=== PATIENT | female | born 1940 | race Caucasian/White ===

== ENCOUNTER 2016-06-13 11:40 | Emergency (ER) | payer OTHER ==
[~2016-06-13] VITALS: Wt 72.1 kg
[~2016-06-13 11:40] MED LIST: ACET-141 PO; ACET500C5 PO; ACET500T98 PO; ALBU18HF INHALATION; ASPI81TA3 PO; ATEN-122 PO; AZIT250T6 PO; CEPH-443 PO; IBUP-1542 PO; IBUP200C PO; IBUP400T22 PO; LOSA25TA2 PO; NIT4 SL; PRAV20TA63 PO
[2016-06-13] MEDS ORDERED: ONDANSETRON 4 MG INJ IV STA (15:45)
[2016-06-13] MEDS ORDERED: SOD CHLORIDE 0.9% 1,000 ML IV STA (15:45)
[2016-06-13 16:19] LABS: ADD SCAN DIFF NO
[2016-06-13 16:21] LABS: ADD UMIC YES; BASOPHILS % 0.7 % (0.0-2.0); EOSINOPHILS # 0.1 10^3/ul (0.0-0.5); EOSINOPHILS % 2.2 % (0.0-7.0); HEMATOCRIT 39.3 % (37.0-47.0); HEMOGLOBIN 13.5 g/dl (12.0-16.0); LYMPHOCYTES # 1.4 10^3/ul (0.8-2.9); LYMPHOCYTES % 24.3 % (15.0-51.0); MEAN CORPUSCULAR HEMOGLOBIN 31.4 pg (29.0-33.0); MEAN CORPUSCULAR HGB CONC 34.4 g/dl (32.0-37.0); MEAN CORPUSCULAR VOLUME 91.4 fl (82.0-101.0); MEAN PLATELET VOLUME 8.9 fl (7.4-10.4); MONOCYTE # 0.3 10^3/ul (0.3-0.9); MONOCYTES % 5.3 % (0.0-11.0); NEUTROPHILS % 67.3 % (39.0-77.0); PLATELET COUNT 233 10^3/UL (140-415); RED CELL DISTRIBUTION WIDTH 12.8 % (11.5-14.5); URINE BILIRUBIN (Dip) NEGATIVE (NEGATIVE); URINE BLOOD (Dip) 2+ (NEGATIVE); URINE COLOR LT. YELLOW (YELLOW); URINE GLUCOSE (Dip) NEGATIVE (NEGATIVE); URINE KETONES (Dip) NEGATIVE (NEGATIVE); URINE LEUKOCYTE ESTERASE (Dip) 3+ (NEGATIVE); URINE NITRITE (Dip) NEGATIVE (NEGATIVE); URINE TOTAL PROTEIN (Dip) NEGATIVE (NEGATIVE); URINE UROBILINOGEN (Dip) 0.2 E.U./dL (0.1-1.0); WHITE BLOOD COUNT 5.9 10^3/ul (4.8-10.8)
[2016-06-13] MEDS ORDERED: DICLOFENAC SODIUM 37.5 MG/ML VIAL IV STA (16:29)
[2016-06-13 16:37] LABS: ALBUMIN 4.1 g/dl (3.3-4.9); BACTERIA,URINE MANY; SQUAMOUS EPITHELIAL CELL,UR MODERATE
[2016-06-13 16:38] LABS: POTASSIUM 3.7 mmol/L (3.5-5.1)
[2016-06-13 16:40] LABS: ALBUMIN/GLOBULIN RATIO 1.32; BILIRUBIN,INDIRECT 1.3 mg/dl (0-1.1); BILIRUBIN,TOTAL 1.3 mg/dl (0.2-1.3); CREATININE 0.59 mg/dl (0.44-1.00); TOTAL PROTEIN 7.2 g/dl (6.1-8.1)
[2016-06-13 16:41] LABS: CALCIUM 9.3 mg/dl (8.4-10.2)
[2016-06-13] MEDS ORDERED: ASPI-664 PO (17:17)
[2016-06-13] MEDS ORDERED: PRAV20TA63 PO (17:18)
[2016-06-13] MEDS ORDERED: ATEN-51 PO (17:19)
[2016-06-13] MEDS ORDERED: CEFTRIAXONE 1 GM/50 ML (PMX) 50 ML IVPB ONE (17:30)
[2016-06-13] MEDS ORDERED: CIPR500T4 PO (17:43)
[2016-06-13] MEDS ORDERED: NITR-58 PO (17:43)
[2016-06-13] MEDS ORDERED: NAPR-688 PO (17:46)
[2016-06-13] MEDS ORDERED: PHEN-537 PO (17:46)
[2016-06-13] MEDS ORDERED: ONDA4TAB14 PO (17:46)
[2016-06-13 18:43] VITALS: BP 190/72; PULSE 80; RESP 20; TEMP 98.6
--- NOTE | 2016-06-22 00:43 | ERD ---
DATE OF SERVICE: 06/13/2016 HISTORY OF PRESENT ILLNESS: This 76-year-old female comes to the emergency room for experiencing bi lateral flank pain radiating to the left anterior abdomen with nausea. She is also having burning o n urination. She has not vomited. She has no diarrhea currently. She has had no fevers or chills. REVIEW OF SYSTEMS: A 12-point review of systems negative except as in the HPI. PAST MEDICAL HISTORY: Hypertension, hypercholesterolemia. PAST SURGICAL HISTORY: Denies. FAMILY HISTORY: Noncontributory. SOCIAL HISTORY: No tobacco, alcohol, or other drugs. PHYSICAL EXAMINATION VITAL SIGNS: Temperature 98, pulse 64, blood pressure 176/79, respirations 20, oxygen saturation 98 % on room air. GENERAL: In no acute distress. HEENT: Normocephalic, atraumatic. NECK: Supple, no JVD, no meningismus. HEART: Regular rate and rhythm. No murmurs. LUNGS: Clear to auscultation bilaterally. ABDOMEN: Soft. No palpable tenderness, nondistended. Bowel sounds are within normal limits. BACK: Mild paraspinal muscle spasm on the left side of back with mild tenderness. No CVA tendernes s, no deformities, no midline tenderness. NEUROLOGIC: Alert and oriented x3, no focal deficits. SKIN: No rashes or other lesions. EXTREMITIES: No cyanosis, clubbing, or edema. DIAGNOSTIC DATA: CBC is completely within normal limits. Basic metabolic panel within normal limit s. Liver function tests show a very mildly-elevated bilirubin of 1.3, otherwise normal. Urinalysis is positive for urinary tract infection with 25-50 white blood cells per high powered field and 5-1 0 red cells. Leukocyte esterase is positive. EMERGENCY DEPARTMENT COURSE AND MEDICAL DECISION MAKING: The patient is suffering from mild pyelone phritis. She was given IV fluids, as well as Zofran, which resolved her nausea. She was also given Dyloject, which made her almost pain free in the emergency room. She has been given a gram of Roce phin IV in order to accelerate treatment of the urinary tract infection. The patient's vital signs remained stable. She did have some hypertension, but the blood pressure was not high enough to acut jasiel lower the emergency room. The patient is going to take her blood pressure medication when she g oes home. Shared decision making was used, and the patient was offered admission to the hospital, b ut she and her family declined this, and would prefer to go home with p.o. antibiotics. I am going to discharge her with Macrobid and Cipro, as well as Zofran, she might need for any nausea. She is instructed today to return to the emergency room for any pain that she is experiencing or cannot man age at home, as well as for any concerning change such as fevers, vomiting. Otherwise, she is going to follow up with doctor in the next 2-3 days. DISCHARGE DIAGNOSIS: Pyelonephritis. DISPOSITION: Home in stable condition. Dictated By: NASREEN CELIS/BERNADETTE Conf#: [id number] DID#: [id number]
== END 2016-06-13 18:48 | disposition home or self-care (01) ==
LOC: E/R 11:40
DX: N12 Tubulo-interstitial nephritis, not specified as acute or chronic (principal); E11.9 Type 2 diabetes mellitus without complications; I10 Essential (primary) hypertension
CPT/HCPCS: 36415; 80053; 81001; 83690; 85025; 87086; 96374; 96375; J0696; J2405; J7030; Z7502; Z7610; 81003

== ENCOUNTER 2016-07-29 13:18 | Emergency (ER) | payer MEDICAID, OTHER ==
[~2016-07-29] VITALS: Ht 157.5 cm; Wt 69.0 kg
[~2016-07-29 13:18] MED LIST changes: -ACET-141 PO; -ACET500C5 PO; -ACET500T98 PO; -ALBU18HF INHALATION; +ASPI-664 PO; -ASPI81TA3 PO; -ATEN-122 PO; +ATEN-51 PO; -AZIT250T6 PO; -CEPH-443 PO; +CIPR500T4 PO; -IBUP-1542 PO; -IBUP200C PO; -IBUP400T22 PO; -LOSA25TA2 PO; +NAPR-688 PO; -NIT4 SL; +NITR-58 PO; +ONDA4TAB14 PO; +PHEN-537 PO
[2016-07-29 13:32] VITALS: Ht 157.5 cm; Wt 69.0 kg
[2016-07-29] MEDS ORDERED: ACETAMINOPHEN 325 MG TAB PO ONE (14:30)
--- NOTE | 2016-07-29 14:43 | RADRPT ---
PROCEDURE: CT Brain without contrast. CLINICAL INDICATION: Trauma; Neurologic deficit TECHNIQUE: A CT of the brain was performed on multidetector high-resolution CT scanner utilizing a xial sections from the skull base through the vertex without contrast. One or more of the following dose reduction techniques were used: Automated exposure control, Adjustment of the mA and/or kV acc ording to patient size, and/or use of iterative reconstruction technique. DOSE: CTDI = 44 mGy and the DLP = 630 mGy-cm. COMPARISON: Head CT 07/29/2008 FINDINGS: No acute intracranial hemorrhage, significant mass effect or midline shift. Patchy hypoattenuation o f the cerebral white matter is compatible with moderate chronic microvascular ischemic changes. Tiny punctate calcification in the right frontal lobe is unchanged from prior. Vascular calcifications. Prominence of the cortical sulci and ventricles are related to mild cerebral volume loss. No signi ficant opacification of the visualized paranasal sinuses or mastoids. IMPRESSION: No acute intracranial findings. Moderate chronic microvascular disease and intracranial atherosclerosis. RPTAT: AA .Goyo Jiménez MD, MD Date Time Electronically viewed and signed by .Goyo Jiménez MD, MD on 07/29/2016 14:43 .T/
--- NOTE | 2016-07-29 14:47 | RADRPT ---
PROCEDURE: CT Cervical Spine without contrast. CLINICAL INDICATION: Trauma, neck pain. TECHNIQUE: A CT of the cervical spine was performed on a multidetector CT scanner utilizing high-r esolution axial imaging from the skull base through the cervical thoracic junction. Sagittal and co shelli reconstructions were performed. CTDI: 22 mGy. DLP: 513 mGycm. One or more of the following dose reduction techniques were used: Automated exposure control, Adjustment of the mA and/or kV acc ording to patient size, and/or use of iterative reconstruction technique. COMPARISON: None available. FINDINGS: Osteopenia. Mild reversal of the cervical lordosis. Corticated osseous structure inferior to the an terior arch of C1 measuring 6 mm may be due to prior, remote injury. No acute cervical vertebral fr acture or subluxation. Multilevel degenerative changes. Grade 1 anterolisthesis C3-4 and C4-5 are d ue to facet arthropathy. Disk osteophytes result in mild spinal canal narrowing at C3-4. Foraminal narrowings are mild bilateral C2-3, moderate to severe right and moderate left C3-4, mild to modera te right and mild left C4-5, mild bilateral C5-6. Aortic and carotid vascular calcifications are se en. IMPRESSION: No acute cervical vertebral fracture or subluxation. Multilevel degenerative changes. RPTAT: AA .Goyo Jiménez MD, MD Date Time Electronically viewed and signed by .Goyo Jiménez MD, MD on 07/29/2016 14:47 .T/
[2016-07-29] MEDS ORDERED: TRAM50TA2 PO (15:46)
[2016-07-29] MEDS ORDERED: ACET500C5 PO (15:46)
--- NOTE | 2016-07-29 15:51 | ERD ---
ER Documentation Chief Complaint Date/Time DATE: 07/29/16 TIME: 15:50 Chief Complaint Pt with CHIANG and neck pain after GLF, no ko. HPI This 76-year-old female complains of right-sided headache and neck pain after a ground-level fall history appears to be a mechanical fall 1 week ago without evidence of chest pain, shortness breath, syncope, vomiting, visual changes or weakness or bowel bladder incontinence. Her pain is primarily on the left side of her neck on the right side of her head. She denies bleeding or lacerations. ROS All systems reviewed and are negative except as per history of present illness. Medications Home Meds Active Scripts Acetaminophen* (Tylophen*) 500 Mg Capsule, 1 CAP PO Q6H Y for PAIN AND OR ELEVATED TEMP, #20 CAP Prov:AMBRCOIO BREAUX MD 07/29/16 Tramadol HCl (Tramadol HCl) 50 Mg Tablet, 50 MG PO Q4 Y for PAIN, #15 TAB Prov:AMBROCIO BREAUX MD 07/29/16 Ondansetron (Ondansetron Odt) 4 Mg Tab.rapdis, 4 MG PO Q6H Y for NAUSEA AND/OR VOMITING, #10 TAB Prov:NASREEN PURDY DO 06/13/16 Phenazopyridine Hcl* (Pyridium*) 100 Mg Tab, 100 MG PO TID, #6 TAB Prov:NASREEN PURDY DO 06/13/16 Naproxen* (Naproxen*) 500 Mg Tablet, 375 MG PO BID Y for PAIN, #20 TAB Prov:NASREEN PURDY DO 06/13/16 Nitrofurantoin Monohyd Macrocr* (Macrobid*) 100 Mg Capsr, 100 MG PO BID for 14 Days, CAP Prov:NASREEN PURDY DO 06/13/16 Ciprofloxacin Hcl* (Ciprofloxacin Hcl*) 500 Mg Tablet, 500 MG PO BID for 10 Days , TAB Prov:NASREEN PURDY DO 06/13/16 Reported Medications Atenolol* (Atenolol*) 25 Mg Tablet, 25 MG PO DAILY, #30 TAB 06/13/16 Pravastatin Sodium* (Pravastatin Sodium*) 20 Mg Tablet, 20 MG PO HS, TAB 06/13/16 Aspirin* (Aspirin* EC) 81 Mg Tablet.dr, 81 MG PO DAILY, TAB 06/13/16 Allergies Allergies: Coded Allergies: morphine (Verified Allergy, Mild, 06/13/16) PMhx/Soc History of Surgery: Yes (CHOLECYSECTOMY, RIGHT BREAT TUMOR REMOVAL, VAGINAL CYST REMOVAL) Anesthesia Reaction: No Hx Neurological Disorder: No Hx Respiratory Disorders: No Hx Cardiac Disorders: Yes (HTN, HIGH CHOLESTEROL) Hx Psychiatric Problems: No Hx Miscellaneous Medical Probl: Yes (DIABETES) Hx Alcohol Use: No Hx Substance Use: No Hx Tobacco Use: No Physical Exam Vitals Vital Signs Date Time Temp Pulse Resp B/P Pulse Ox O2 Delivery O2 Flow Rate FiO2 07/29/16 13:32 98.5 84 16 183/81 97 Physical Exam Const: [] Alert, [id number]. Head: Atraumatic. Minimal tenderness in the right parietal area without step- offs, deformities, swelling. Eyes: Normal Conjunctiva ENT: Normal External Ears, Nose and Mouth. No hemotympanum or yi sign. Tenderness in the left neck paraspinous muscles without appreciable midline tenderness or deformities. Neck: Full range of motion..~ No meningismus. Resp: Clear to auscultation bilaterally Cardio: Regular rate and rhythm, no murmurs Abd: Soft, non tender, non distended. Normal bowel sounds Skin: No petechiae or rashes Back: No midline or flank tenderness Ext: No cyanosis, or edema Neur: Awake and alert Psych: Normal Mood and Affect Results 24 hrs Current Medications Medications (Trade) Dose Ordered Sig/Cyrus Route PRN Reason Start Time Stop Time Status Last Admin Dose Admin Acetaminophen (Tylenol Tab) 650 mg ONCE ONCE PO 07/29/16 14:30 07/29/16 14:31 DC Procedures/MDM Given duration of symptoms status post trauma CT brain and C-spine was performed which shows no acute findings. Patient appears to have cervical strain and head injury without evidence of bleeding, fracture, mass-effect, neurologic deficit. She will be treated with tramadol and Tylenol further observation at home. The patient was stable with no new complaints during the ER course. Clinically, there is no current evidence to suggest meningitis, sepsis, acute abdomen, pneumonia, acute coronary syndrome, pulmonary embolism, or any other emergent condition appearing to require further evaluation or hospitalization. The patient should certainly return for any new or worsening symptoms per the aftercare instructions. They should otherwise follow-up with her primary care doctor for reevaluation this week. Departure Diagnosis: Primary Impression: Head injury Encounter type: initial encounter Qualified Code: S09.90XA - Head injury, initial encounter Additional Impression: Injury of neck Encounter type: initial encounter Qualified Code: S19.9XXA - Injury of neck , initial encounter Condition: Stable Patient Instructions: HEAD INJURY, No Wake-Up (Adult), Neck Sprain/Strain Additional Instructions: Examines normal hoy. Cheque otro vez con escamilla doctor primario en el proximo mandujano or regresa para mas o nueva simptomas. AMBROCIO BREAUX MD July 29, 2016 15:51
== END 2016-07-29 16:06 | disposition home or self-care (01) ==
LOC: FTE 13:18
DX: S09.90XA Unspecified injury of head, initial encounter (principal); S19.9XXA Unspecified injury of neck, initial encounter; I10 Essential (primary) hypertension; E11.9 Type 2 diabetes mellitus without complications; R51 Headache; W18.39XA Other fall on same level, initial encounter; Y92.9 Unspecified place or not applicable; Z79.82 Long term (current) use of aspirin
CPT/HCPCS: 70450; 72125; Z7502

== ENCOUNTER 2016-07-31 12:14 | Emergency (ER) | payer MEDICAID ==
[~2016-07-31] VITALS: Wt 68.0 kg
[~2016-07-31 12:14] MED LIST changes: +ACET500C5 PO; +TRAM50TA2 PO
[2016-07-31] MEDS ORDERED: ONDANSETRON 4 MG INJ IV STA (16:20)
[2016-07-31] MEDS ORDERED: FAMOTIDINE 20 MG INJ IV STA (16:20)
[2016-07-31] MEDS ORDERED: NICARDipine HCL 30 MG CAPSULE PO ONE (16:30)
[2016-07-31 16:51] LABS: ADD SCAN DIFF NO
[2016-07-31 16:53] LABS: BASOPHIL # 0.1 10^3/ul (0.0-0.1); BASOPHILS % 0.5 % (0.0-2.0); HEMATOCRIT 39.1 % (37.0-47.0); LYMPHOCYTES # 0.8 10^3/ul (0.8-2.9); LYMPHOCYTES % 7.9 % (15.0-51.0); MEAN CORPUSCULAR HEMOGLOBIN 30.7 pg (29.0-33.0); MEAN CORPUSCULAR HGB CONC 33.2 g/dl (32.0-37.0); MEAN CORPUSCULAR VOLUME 92.2 fl (82.0-101.0); MONOCYTE # 0.2 10^3/ul (0.3-0.9); MONOCYTES % 1.6 % (0.0-11.0); NEUTROPHIL # 9.4 10^3/ul (1.6-7.5); NEUTROPHILS % 89.5 % (39.0-77.0); PLATELET COUNT 228 10^3/UL (140-415); RED BLOOD COUNT 4.24 10^6/ul (4.20-5.40); RED CELL DISTRIBUTION WIDTH 12.8 % (11.5-14.5); WHITE BLOOD COUNT 10.5 10^3/ul (4.8-10.8)
[2016-07-31 17:08] LABS: ALBUMIN 4.3 g/dl (3.3-4.9); CHLORIDE 102 mmol/L (97-110)
[2016-07-31 17:09] LABS: POTASSIUM 3.5 mmol/L (3.5-5.1); SODIUM 139 mmol/L (135-144)
[2016-07-31 17:10] LABS: CREATININE 0.55 mg/dl (0.44-1.00)
[2016-07-31 17:11] LABS: ALANINE AMINOTRANSFERASE 31 IU/L (13-69); ALKALINE PHOSPHATASE 126 IU/L (42-121); ANION GAP 15 (8-16); ASPARTATE AMINO TRANSFERASE 21 IU/L (15-46); BLOOD UREA NITROGEN 15 mg/dl (7-20); CARBON DIOXIDE 26 mmol/L (21-31); GLUCOSE 131 mg/dl (70-220); TOTAL PROTEIN 7.6 g/dl (6.1-8.1)
[2016-07-31 17:12] LABS: CALCIUM 9.2 mg/dl (8.4-10.2)
[2016-07-31 17:24] LABS: TROPONIN-I < 0.012 ng/ml (0.00-0.12)
[2016-07-31] MEDS ORDERED: IOHEXOL 300MG/ML 150 ML BTL ONE (17:29)
[2016-07-31] MEDS ORDERED: SOD CHLORIDE 0.9% 100 ML ONE (17:29)
--- NOTE | 2016-07-31 18:34 | RADRPT ---
PROCEDURE: CT Abdomen and Pelvis with contrast. CLINICAL INDICATION: Abdominal pain, nausea, vomiting TECHNIQUE: CT of the abdomen and pelvis was performed on a multi-detector scanner following the un complicated IV administration of 90 cc of Omnipaque 300. Coronal and sagittal images were reformatt ed from the axial data set. One or more of the following dose reduction techniques were used: autom ated exposure control, adjustment of the mA and/or kV according to patient size, use of iterative r econstruction technique. CTDI = 12.23 mGy. DLP = a 662.72 mGy-cm. COMPARISON: None. FINDINGS: CT abdomen: The lung bases are clear. The heart size is normal, without pericardial effusion. Gallbladder is s urgically absent. There is mild dilatation of the intra and extrahepatic biliary ducts - common anjelica e duct maximal diameter is 11 mm. Liver demonstrates scattered benign cysts, stable over time. Whalen creas, spleen, adrenal glands and kidneys are unremarkable except for benign renal cysts. No urolit hiasis or obstructive uropathy is identified. The stomach is grossly unremarkable. There is no abdominal aortic aneurysm or dissection. Aortic vascular calcifications are present. T here is no retroperitoneal lymphadenopathy. The bonnie hepatis region is clear. CT pelvis: No bowel obstruction, free intraperitoneal air or abscess is identified. Colonic diverticulosis is noted without diverticulitis. The appendix is well visualized and normal. There is no colitis. Ur inary bladder, uterus and right adnexa are unremarkable. Left ovary demonstrates a 2 cm cyst. No s olid pelvic mass, free fluid or lymphadenopathy is identified. The surrounding osseous structures are remarkable for degenerative spondylosis of the spine. No ost eolytic or osteoblastic lesion is detected. IMPRESSION: 1. Gallbladder is surgically absent. There is mild dilatation of intra and extrahepatic biliary du cts, which appears slightly increased when compared to the prior CT from 2014 - consider correlation with LFTs and/or MRCP for further evaluation. 2. Aortoiliac atherosclerotic calcifications are present. 3. Colonic diverticulosis is noted without diverticulitis. 4. Left ovary demonstrates a 2 cm cyst, unchanged from the prior CT. 5. No mass, lymphadenopathy, or focal acute inflammatory process is identified. RPTAT: HDWR .Willy Rowley MD, MD Date Time Electronically viewed and signed by .Willy Rowley MD, MD on 07/31/2016 18:33 .R/
[2016-07-31] MEDS ORDERED: OMEP40CA6 PO (19:33)
[2016-07-31] MEDS ORDERED: TRAM50TA2 PO (19:33)
--- NOTE | 2016-07-31 19:36 | ERD ---
ER Documentation Chief Complaint Date/Time DATE: 07/31/16 TIME: 19:34 Chief Complaint ABD PAIN, NAUSEA, VOMITING, ONSET YESTERDAY, NO DIARRHEA HPI This is a 76-year-old female who is here for nausea onset at 5:00 this morning with epigastric burning pain. She has no vomiting no diarrhea. She has no radiation of pain. Pain gets worse after eating. No melena no dizziness syncope chest pain shortness of breath pain in the jaw elbow neck back. ROS All systems reviewed and are negative except as per history of present illness. Medications Home Meds Active Scripts Tramadol HCl (Tramadol HCl) 50 Mg Tablet, 50 MG PO Q6, #10 TAB Prov:DEYSI ZAMORA DO 07/31/16 Omeprazole* (Omeprazole*) 40 Mg Capsule.dr, 40 MG PO DAILY, #10 CAP Prov:DEYSI ZAMORA DO 07/31/16 Acetaminophen* (Tylophen*) 500 Mg Capsule, 1 CAP PO Q6H Y for PAIN AND OR ELEVATED TEMP, #20 CAP Prov:AMBROCIO BREAUX MD 07/29/16 Tramadol HCl (Tramadol HCl) 50 Mg Tablet, 50 MG PO Q4 Y for PAIN, #15 TAB Prov:AMBROCIO BREAUX MD 07/29/16 Ondansetron (Ondansetron Odt) 4 Mg Tab.rapdis, 4 MG PO Q6H Y for NAUSEA AND/OR VOMITING, #10 TAB Prov:NASREEN PURDY DO 06/13/16 Phenazopyridine Hcl* (Pyridium*) 100 Mg Tab, 100 MG PO TID, #6 TAB Prov:NASREEN PURDY DO 06/13/16 Naproxen* (Naproxen*) 500 Mg Tablet, 375 MG PO BID Y for PAIN, #20 TAB Prov:NASREEN PURDY DO 06/13/16 Nitrofurantoin Monohyd Macrocr* (Macrobid*) 100 Mg Capsr, 100 MG PO BID for 14 Days, CAP Prov:NASREEN PURDY DO 06/13/16 Ciprofloxacin Hcl* (Ciprofloxacin Hcl*) 500 Mg Tablet, 500 MG PO BID for 10 Days , TAB Prov:NASREEN PURDY DO 06/13/16 Reported Medications Atenolol* (Atenolol*) 25 Mg Tablet, 25 MG PO DAILY, #30 TAB 06/13/16 Pravastatin Sodium* (Pravastatin Sodium*) 20 Mg Tablet, 20 MG PO HS, TAB 06/13/16 Aspirin* (Aspirin* EC) 81 Mg Tablet.dr, 81 MG PO DAILY, TAB 06/13/16 Allergies Allergies: Coded Allergies: morphine (Verified Allergy, Mild, 06/13/16) PMhx/Soc History of Surgery: Yes (CHOLECYSECTOMY, RIGHT BREAT TUMOR REMOVAL, VAGINAL CYST REMOVAL) Anesthesia Reaction: No Hx Neurological Disorder: No Hx Respiratory Disorders: No Hx Cardiac Disorders: Yes (HTN, HIGH CHOLESTEROL) Hx Psychiatric Problems: No Hx Miscellaneous Medical Probl: Yes (DIABETES) Hx Alcohol Use: No Hx Substance Use: No Hx Tobacco Use: No Smoking Status: Unknown if ever smoked FmHx Family History: No coronary disease Physical Exam Vitals Vital Signs Date Time Temp Pulse Resp B/P Pulse Ox O2 Delivery O2 Flow Rate FiO2 07/31/16 12:17 97.4 65 17 211/93 100 Physical Exam Const: Well-developed, well-nourished Head: Atraumatic, normocephalic Eyes: Normal Conjunctiva, PERRLA, EOMI, normal sclera, no nystagmus ENT: Normal External Ears, Nose and Mouth, moist mucus membranes. Neck: Full range of motion. No meningismus, no lymphadenopathy. Resp: Clear to auscultation bilaterally, no wheezing, rhonchi, rales Cardio: Regular rate and rhythm, no murmurs, S1 S2 present Abd: Soft, mild left upper quadrant tenderness, non distended. Normal bowel sounds, no guarding or rebound, no pulsitile abdominal masses or bruits Skin: No petechiae or rashes, no ecchymosis , no maculopapular rash Back: No midline or flank tenderness Ext: No cyanosis, or edema, FROM x 4, normal inspection, neurovascularly intact x 4 Neur: Awake and alert, STR 5/5 x 4, sensation intact x 4, no focal findings, cerebellum intact Psych: Normal Mood and Affect Result Diagram: 07/31/16 1640 07/31/16 1640 Results 24 hrs Laboratory Tests Test 07/31/16 16:40 White Blood Count 10.510^3/ul Red Blood Count 4.2410^6/ul Hemoglobin 13.0g/dl Hematocrit 39.1% Mean Corpuscular Volume 92.2fl Mean Corpuscular Hemoglobin 30.7pg Mean Corpuscular Hemoglobin Concent 33.2g/dl Red Cell Distribution Width 12.8% Platelet Count 77139^3/UL Mean Platelet Volume 9.0fl Neutrophils % 89.5% Lymphocytes % 7.9% Monocytes % 1.6% Eosinophils % 0.0% Basophils % 0.5% Nucleated Red Blood Cells % 0.0/100WBC Neutrophils # 9.410^3/ul Lymphocytes # 0.810^3/ul Monocytes # 0.210^3/ul Eosinophils # 0.010^3/ul Basophils # 0.110^3/ul Nucleated Red Blood Cells # 0.010^3/ul Sodium Level 139mmol/L Potassium Level 3.5mmol/L Chloride Level 102mmol/L Carbon Dioxide Level 26mmol/L Anion Gap 15 Blood Urea Nitrogen 15mg/dl Creatinine 0.55mg/dl Glucose Level 131mg/dl Calcium Level 9.2mg/dl Total Bilirubin 1.0mg/dl Direct Bilirubin 0.00mg/dl Indirect Bilirubin 1.0mg/dl Aspartate Amino Transf (AST/SGOT) 21IU/L Alanine Aminotransferase (ALT/SGPT) 31IU/L Alkaline Phosphatase 126IU/L Troponin I < 0.012ng/ml Total Protein 7.6g/dl Albumin 4.3g/dl Globulin 3.30g/dl Albumin/Globulin Ratio 1.30 Lipase 14U/L Current Medications Medications (Trade) Dose Ordered Sig/Cyrus Route PRN Reason Start Time Stop Time Status Last Admin Dose Admin Ondansetron HCl (Zofran Inj) 4 mg ONCE STAT IV 07/31/16 16:20 07/31/16 16:22 DC 07/31/16 16:42 Famotidine (Pepcid Iv) 20 mg ONCE STAT IV 07/31/16 16:20 07/31/16 16:22 DC 07/31/16 16:42 Nicardipine HCl (Cardene) 30 mg ONCE ONCE PO 07/31/16 16:30 07/31/16 16:31 DC 07/31/16 16:46 IV Flush 10 ml 10 ml STK-MED ONCE .ROUTE 07/31/16 17:29 07/31/16 17:30 DC 07/31/16 17:44 Sodium Chloride (NS) 100 ml @ ud STK-MED ONCE .ROUTE 07/31/16 17:29 07/31/16 17:30 DC 07/31/16 17:44 Iohexol (Omnipaque 300mg/ ml) 150 ml STK-MED ONCE .ROUTE 07/31/16 17:29 07/31/16 17:30 DC 07/31/16 17:44 Procedures/MDM PROCEDURE: CT Abdomen and Pelvis with contrast. CLINICAL INDICATION: Abdominal pain, nausea, vomiting TECHNIQUE: CT of the abdomen and pelvis was performed on a multi-detector scanner following the uncomplicated IV administration of 90 cc of Omnipaque 300. Coronal and sagittal images were reformatted from the axial data set. One or more of the following dose reduction techniques were used: automated exposure control, adjustment of the mA and/or kV according to patient size, use of iterative reconstruction technique. CTDI = 12.23 mGy. DLP = a 662.72 mGy -cm. COMPARISON: None. FINDINGS: CT abdomen: The lung bases are clear. The heart size is normal, without pericardial effusion. Gallbladder is surgically absent. There is mild dilatation of the intra and extrahepatic biliary ducts - common bile duct maximal diameter is 11 mm. Liver demonstrates scattered benign cysts, stable over time. Pancreas, spleen, adrenal glands and kidneys are unremarkable except for benign renal cysts. No urolithiasis or obstructive uropathy is identified. The stomach is grossly unremarkable. There is no abdominal aortic aneurysm or dissection. Aortic vascular calcifications are present. There is no retroperitoneal lymphadenopathy. The bonnie hepatis region is clear. CT pelvis: No bowel obstruction, free intraperitoneal air or abscess is identified. Colonic diverticulosis is noted without diverticulitis. The appendix is well visualized and normal. There is no colitis. Urinary bladder, uterus and right adnexa are unremarkable. Left ovary demonstrates a 2 cm cyst. No solid pelvic mass, free fluid or lymphadenopathy is identified. The surrounding osseous structures are remarkable for degenerative spondylosis of the spine. No osteolytic or osteoblastic lesion is detected. IMPRESSION: 1. Gallbladder is surgically absent. There is mild dilatation of intra and extrahepatic biliary ducts, which appears slightly increased when compared to the prior CT from 2013 - consider correlation with LFTs and/or MRCP for further evaluation. 2. Aortoiliac atherosclerotic calcifications are present. 3. Colonic diverticulosis is noted without diverticulitis. 4. Left ovary demonstrates a 2 cm cyst, unchanged from the prior CT. 5. No mass, lymphadenopathy, or focal acute inflammatory process is identified. RPTAT: HDWR .Willy Rowley MD, MD Date Time Electronically viewed and signed by .Willy Rowley MD, MD on 07/31/2016 18: 33 .R/ CC: DEYSI ZAMORA DO EKG: Rate/Rhythm: Normal Sinus Rhythm,NL intervals QRS, ST, QT: NORMAL LA, QRS, QT] Impression: NORMAL EKG Patient likely has gastritis or peptic ulcer disease. No evidence o any intra- abdominal pathology of the liver ducts are somewhat dilated however her liver function tests are unremarkable. This must be chronic. We will change her diet and put her on omeprazole and observe Told her signs and symptoms to return Departure Diagnosis: Primary Impression: Epigastric abdominal pain Additional Impression: Gastritis Gastritis type: unspecified gastritis Chronicity: acute Gastritis bleeding : presence of bleeding unspecified Qualified Code: K29.00 - Acute gastritis, presence of bleeding unspecified, unspecified gastritis type Condition: Stable Patient Instructions: Gastritis Vs. Ulcer, Epigastric Pain (Uncertain Cause) DEYSI ZAMORA DO July 31, 2016 19:36
[2016-07-31 19:40] VITALS: BP 132/62; PULSE 74; RESP 15; TEMP 98.1
== END 2016-07-31 19:56 | disposition home or self-care (01) ==
LOC: E/R 12:14
DX: R10.13 Epigastric pain (principal); K29.00 Acute gastritis without bleeding; I10 Essential (primary) hypertension; E11.9 Type 2 diabetes mellitus without complications; R11.2 Nausea with vomiting, unspecified; Z79.82 Long term (current) use of aspirin
CPT/HCPCS: 36415; 74177; 80053; 83690; 84484; 85025; 96374; 96375; J2405; Q9967; Z7502; Z7610; 93005

== ENCOUNTER 2016-08-28 13:01 | Emergency (ER) | payer MEDICAID ==
[~2016-08-28] VITALS: Ht 154.9 cm; Wt 85.0 kg
[~2016-08-28 13:01] MED LIST changes: +OMEP40CA6 PO
[2016-08-28 13:04] VITALS: Ht 154.9 cm; Wt 85.0 kg
[2016-08-28] MEDS ORDERED: ATEN-51 PO (14:51)
[2016-08-28] MEDS ORDERED: PRAV20TA63 PO (14:51)
[2016-08-28] MEDS ORDERED: ASPI-805 PO (14:51)
[2016-08-28] MEDS ORDERED: TRAM50TA2 PO (14:51)
--- NOTE | 2016-08-28 14:56 | ERD ---
ER Documentation Chief Complaint Date/Time DATE: 08/28/16 TIME: 14:53 Chief Complaint R back pain x 2 months and HTN med refil HPI 76-year-old female presents with multiple complaints. She has some generalized upper trapezius pain for the last 2 months. She is requesting a refill for hypertension, cholesterol medicine for pain as well. She has been seen for this before. She denies any fevers, shortness breath or chest pain. She denies any trauma or fall, weakness or bowel bladder incontinence. Patient admits that she has not had a primary doctor for these reasons as she lost her insurance. ROS All systems reviewed and are negative except as per history of present illness. Medications Home Meds Active Scripts Aspirin* ([place] Aspirin*) 81 Mg Tab.chew, 81 MG PO DAILY, #90 TAB.CHEW Prov:AMBROCIO BREAUX MD 08/28/16 Pravastatin Sodium* (Pravastatin Sodium*) 20 Mg Tablet, 20 MG PO HS, #30 TAB Prov:AMBROCIO BREAUX MD 08/28/16 Atenolol* (Atenolol*) 25 Mg Tablet, 25 MG PO DAILY, #30 TAB Prov:AMBROCIO BREAUX MD 08/28/16 Tramadol HCl (Tramadol HCl) 50 Mg Tablet, 50 MG PO Q4 Y for PAIN, #30 TAB Prov:AMBROCIO BREAUX MD 08/28/16 Tramadol HCl (Tramadol HCl) 50 Mg Tablet, 50 MG PO Q6, #10 TAB Prov:DEYSI ZAMORA DO 07/31/16 Omeprazole* (Omeprazole*) 40 Mg Capsule.dr, 40 MG PO DAILY, #10 CAP Prov:DEYSI ZAMORA DO 07/31/16 Acetaminophen* (Tylophen*) 500 Mg Capsule, 1 CAP PO Q6H Y for PAIN AND OR ELEVATED TEMP, #20 CAP Prov:AMBROCIO BREAUX MD 07/29/16 Tramadol HCl (Tramadol HCl) 50 Mg Tablet, 50 MG PO Q4 Y for PAIN, #15 TAB Prov:AMBROCIO BREAUX MD 07/29/16 Ondansetron (Ondansetron Odt) 4 Mg Tab.rapdis, 4 MG PO Q6H Y for NAUSEA AND/OR VOMITING, #10 TAB Prov:NASREEN PURDY DO 06/13/16 Phenazopyridine Hcl* (Pyridium*) 100 Mg Tab, 100 MG PO TID, #6 TAB Prov:NASREEN PURDY DO 06/13/16 Naproxen* (Naproxen*) 500 Mg Tablet, 375 MG PO BID Y for PAIN, #20 TAB Prov:NASREEN PURDY DO 06/13/16 Nitrofurantoin Monohyd Macrocr* (Macrobid*) 100 Mg Capsr, 100 MG PO BID for 14 Days, CAP Prov:NASREEN PURDY DO 06/13/16 Ciprofloxacin Hcl* (Ciprofloxacin Hcl*) 500 Mg Tablet, 500 MG PO BID for 10 Days , TAB Prov:NASREEN PURDY DO 06/13/16 Reported Medications Atenolol* (Atenolol*) 25 Mg Tablet, 25 MG PO DAILY, #30 TAB 06/13/16 Pravastatin Sodium* (Pravastatin Sodium*) 20 Mg Tablet, 20 MG PO HS, TAB 06/13/16 Aspirin* (Aspirin* EC) 81 Mg Tablet.dr, 81 MG PO DAILY, TAB 06/13/16 Allergies Allergies: Coded Allergies: morphine (Verified Allergy, Mild, 06/13/16) PMhx/Soc History of Surgery: Yes (CHOLECYSECTOMY, RIGHT BREAT TUMOR REMOVAL, VAGINAL CYST REMOVAL) Anesthesia Reaction: No Hx Neurological Disorder: No Hx Respiratory Disorders: No Hx Cardiac Disorders: Yes (HTN, HIGH CHOLESTEROL) Hx Psychiatric Problems: No Hx Miscellaneous Medical Probl: Yes (DIABETES) Hx Alcohol Use: No Hx Substance Use: No Hx Tobacco Use: No Physical Exam Vitals Vital Signs Date Time Temp Pulse Resp B/P Pulse Ox O2 Delivery O2 Flow Rate FiO2 08/28/16 13:04 97.7 87 18 196/84 95 Physical Exam Const: [] Alert, [id number] per Head: Atraumatic Eyes: Normal Conjunctiva ENT: Normal External Ears, Nose and Mouth. Neck: Full range of motion..~ No meningismus. Resp: Clear to auscultation bilaterally Cardio: Regular rate and rhythm, no murmurs Abd: Soft, non tender, non distended. Normal bowel sounds Skin: No petechiae or rashes Back: No midline or flank tenderness. Mild tenderness in the upper trapezius area without bony tenderness or deformities. Ext: No cyanosis, or edema Neur: Awake and alert. No appreciable focal neurologic deficits. Normal gait. Psych: Normal Mood and Affect Results 24 hrs Current Medications Medications (Trade) Dose Ordered Sig/Cyrus Route PRN Reason Start Time Stop Time Status Last Admin Dose Admin Tramadol HCl (Ultram) 50 mg ONCE ONCE PO 08/28/16 15:00 08/28/16 15:01 Procedures/MDM Patient presents with chronic upper back pain which appears musculoskeletal. She also has hypertension and elevated blood pressure is here primarily for medication refills. There is no signs or symptoms to suggest acute condition such as fracture, dislocation, or neurologic deficit. She will be treated with tramadol, atenolol, pravastatin and aspirin by request. Patient will referred to local health centers for primary care and follow-up. Patient was advised to avoid using emergency room for medication refills. The patient was stable with no new complaints during the ER course. Clinically, there is no current evidence to suggest meningitis, sepsis, acute abdomen, pneumonia, acute coronary syndrome, pulmonary embolism, or any other emergent condition appearing to require further evaluation or hospitalization. The patient should certainly return for any new or worsening symptoms per the aftercare instructions. They should otherwise follow-up with her primary care doctor for reevaluation this week. Departure Diagnosis: Primary Impression: Hypertension Hypertension type: essential hypertension Qualified Code: I10 - Essential hypertension Additional Impression: Back pain Back pain location: back pain in unspecified location Chronicity: chronic Back pain laterality: unspecified Qualified Code: M54.9 - Chronic back pain, unspecified back location, unspecified back pain laterality Condition: Stable Patient Instructions: High Blood Pressure (Hypertension), Back Pain (Acute Or Chronic) [facility] Usted se coronel hecho un examen mdico de control que le indica que no est en marin condicin que requiera tratamiento urgente en el Departamento de Emergencia. Un estudio ms profundo y el tratamiento de escamilla condicin pueden esperar sin ningn riesgo hasta que usted sea atendida/o en el consultorio de escamilla mdico o marin cl bossman. Es responsabilidad suya arreglar marin gee para el seguimiento del hortencia. MANEJO DE CONDICIONES NO URGENTES EN EL FUTURO 1) Si usted tiene un mdico de atencin primaria: Usted debera llamar a escamilla mdico de atencin primaria antes de venir al departamento de emergencia. Despus de las horas de consultorio, escamilla doctor o escamilla asociado/a est disponible por telfono. El mdico o enfermero de prosper en el servicio telefnico puede asesorarle por pauline medio para atender el problema, o hortencia contrario se puede programar marin gee. 2) Si usted no tiene un mdico de atencin primaria: Llame al mdico o clnica de referencia que aparece abajo brodie las horas de consultorio para hacer marin gee para que le vean. CLINICAS: [facility] [phone] [phone] [facility] [phone] [facility] [phone] [place] [id number] [phone] [place] [id number] [phone] AMBROCIO GUZMAN MD Aug 28, 2016 14:56
[2016-08-28] MEDS ORDERED: traMADol 50 MG TAB PO ONE (15:00)
[2016-08-28 15:30] VITALS: BP 166/78; PULSE 77; RESP 18; TEMP 97.8
== END 2016-08-28 15:36 | disposition home or self-care (01) ==
LOC: FTE 13:01
DX: I10 Essential (primary) hypertension (principal); E11.9 Type 2 diabetes mellitus without complications; Z79.82 Long term (current) use of aspirin
CPT/HCPCS: 99283

== ENCOUNTER 2016-11-07 17:02 | Emergency (ER) | payer MEDICAID ==
[~2016-11-07] VITALS: Ht 157.5 cm; Wt 70.0 kg
[~2016-11-07 17:02] MED LIST changes: +ASPI-805 PO
[2016-11-07 17:13] VITALS: Ht 157.5 cm; Wt 70.0 kg
[2016-11-07] MEDS ORDERED: HYD25 PO (17:52)
[2016-11-07] MEDS ORDERED: NICARDipine HCL 30 MG CAPSULE PO ONE (18:00)
--- NOTE | 2016-11-07 18:14 | ERD ---
ER Documentation Chief Complaint Date/Time DATE: 11/07/16 TIME: 18:14 Chief Complaint Sent from for eval HTN HPI Patient is a 76-year-old female with hypertension who presents with high blood pressure. The patient had gone to a clinic and was sent to the ER because of her elevated blood pressure. She says that she currently takes atenolol for high blood pressure. She has a headache but no slurred speech. She was saying that she was having some chest discomfort. The symptoms started today. She does not know the name of her primary doctor. ROS All systems reviewed and are negative except as per history of present illness. Medications Home Meds Active Scripts Hydrochlorothiazide* (Hydrochlorothiazide*) 25 Mg Tab, 25 MG PO DAILY, #30 TAB Prov:ASHLEY NGUYEN MD 11/07/16 Aspirin* ([place] Aspirin*) 81 Mg Tab.chew, 81 MG PO DAILY, #90 TAB.CHEW Prov:AMBROCIO BREAUX MD 08/28/16 Pravastatin Sodium* (Pravastatin Sodium*) 20 Mg Tablet, 20 MG PO HS, #30 TAB Prov:AMBROCIO BREAUX MD 08/28/16 Atenolol* (Atenolol*) 25 Mg Tablet, 25 MG PO DAILY, #30 TAB Prov:AMBROCIO BREAUX MD 08/28/16 Tramadol HCl (Tramadol HCl) 50 Mg Tablet, 50 MG PO Q4 Y for PAIN, #30 TAB Prov:AMBROCIO BREAUX MD 08/28/16 Tramadol HCl (Tramadol HCl) 50 Mg Tablet, 50 MG PO Q6, #10 TAB Prov:DEYSI ZAMORA DO 07/31/16 Omeprazole* (Omeprazole*) 40 Mg Capsule.dr, 40 MG PO DAILY, #10 CAP Prov:DEYSI ZAMORA DO 07/31/16 Acetaminophen* (Tylophen*) 500 Mg Capsule, 1 CAP PO Q6H Y for PAIN AND OR ELEVATED TEMP, #20 CAP Prov:AMBROCIO BREAUX MD 07/29/16 Tramadol HCl (Tramadol HCl) 50 Mg Tablet, 50 MG PO Q4 Y for PAIN, #15 TAB Prov:AMBROCIO BREAUX MD 07/29/16 Ondansetron (Ondansetron Odt) 4 Mg Tab.rapdis, 4 MG PO Q6H Y for NAUSEA AND/OR VOMITING, #10 TAB Prov:NASREEN PURDY DO 06/13/16 Phenazopyridine Hcl* (Pyridium*) 100 Mg Tab, 100 MG PO TID, #6 TAB Prov:NASREEN PURDY DO 06/13/16 Naproxen* (Naproxen*) 500 Mg Tablet, 375 MG PO BID Y for PAIN, #20 TAB Prov:NASREEN PURDY DO 06/13/16 Nitrofurantoin Monohyd Macrocr* (Macrobid*) 100 Mg Capsr, 100 MG PO BID for 14 Days, CAP Prov:NASREEN PURDY DO 06/13/16 Ciprofloxacin Hcl* (Ciprofloxacin Hcl*) 500 Mg Tablet, 500 MG PO BID for 10 Days , TAB Prov:NASREEN PURDY DO 06/13/16 Reported Medications Atenolol* (Atenolol*) 25 Mg Tablet, 25 MG PO DAILY, #30 TAB 06/13/16 Pravastatin Sodium* (Pravastatin Sodium*) 20 Mg Tablet, 20 MG PO HS, TAB 06/13/16 Aspirin* (Aspirin* EC) 81 Mg Tablet.dr, 81 MG PO DAILY, TAB 06/13/16 Allergies Allergies: Coded Allergies: morphine (Verified Allergy, Mild, 06/13/16) PMhx/Soc History of Surgery: Yes (CHOLECYSECTOMY, RIGHT BREAST TUMOR REMOVAL, VAGINAL CYST REMOVAL) Anesthesia Reaction: No Hx Neurological Disorder: No Hx Respiratory Disorders: No Hx Cardiac Disorders: Yes (HTN, HIGH CHOLESTEROL) Hx Psychiatric Problems: No Hx Miscellaneous Medical Probl: Yes (DIABETES) Hx Alcohol Use: No Hx Substance Use: No Hx Tobacco Use: No FmHx Family History: No diabetes Physical Exam Vitals Vital Signs Date Time Temp Pulse Resp B/P Pulse Ox O2 Delivery O2 Flow Rate FiO2 11/07/16 17:13 98.6 66 20 168/73 97 Physical Exam Const: No acute distress Head: Atraumatic Eyes: Normal Conjunctiva ENT: Normal External Ears, Nose and Mouth. Neck: Full range of motion..~ No meningismus. Resp: Clear to auscultation bilaterally Cardio: Regular rate and rhythm, no murmurs Abd: Soft, non tender, non distended. Normal bowel sounds Skin: No petechiae or rashes Back: No midline or flank tenderness Ext: No cyanosis, or edema Neur: Awake and alert, cranial nerves II through XII intact, strength is 5 out of 5 in all 4 extremities, no slurred speech Psych: Normal Mood and Affect Results 24 hrs Current Medications Medications (Trade) Dose Ordered Sig/Cyrus Route PRN Reason Start Time Stop Time Status Last Admin Dose Admin Nicardipine HCl (Cardene) 30 mg ONCE ONCE PO 11/07/16 18:00 11/07/16 18:01 DC 11/07/16 17:58 Procedures/MDM EKG read by me: Rate/Rhythm: Sinus bradycardia rate of 59 Intervals: Normal Impression: Sinus bradycardia without ischemia Patient is a 76-year-old female presents with acute on chronic hypertension. The patient was given Cardene by mouth. EKG shows no signs of ischemia or arrhythmia. I doubt acute coronary syndrome or stroke in this patient. I believe outpatient management is appropriate. The patient will be given hydrochlorothiazide to add to her atenolol to help control her blood pressure. She can return for any worsening symptoms. I doubt acute hypertensive emergency in this case. Departure Diagnosis: Primary Impression: Hypertension Hypertension type: essential hypertension Qualified Code: I10 - Essential hypertension Condition: Fair Patient Instructions: High Blood Pressure (Hypertension) Referrals: [facility] Additional Instructions: Llame al doctor XOCHITL y riki marin GERARDO PARA DENTRO DE 1-2 PALM.Dgale a la secretaria que nosotros le instruimos hacer esta gerardo.Avise o llame si escamilla condicin se empeora antes de la gerardo. Regresa aqui si peor o no mejor. ASHLEY NGUYEN MD Nov 07, 2016 18:14
[2016-11-07 18:24] VITALS: BP 147/67; PULSE 59; RESP 20
== END 2016-11-07 18:14 | disposition home or self-care (01) ==
LOC: FTE 17:02
DX: I10 Essential (primary) hypertension (principal); E11.9 Type 2 diabetes mellitus without complications; Z79.82 Long term (current) use of aspirin
CPT/HCPCS: 93005; Z7502; Z7610

== ENCOUNTER 2017-03-03 18:12 | Emergency (ER) | payer MEDICAID, OTHER ==
[~2017-03-03] VITALS: Wt 68.0 kg
[~2017-03-03 18:12] MED LIST changes: +HYDR25TA6 PO
[2017-03-03 21:21] LABS: URINE BLOOD (Dip) POC 1+ (NEGATIVE)
[2017-03-03 21:27] LABS: URINE BLOOD (Dip) POC 1+ (NEGATIVE)
--- NOTE | 2017-03-03 21:40 | ERD ---
ER Documentation Chief Complaint Chief Complaint BACK PAIN X2 DAYS, DENIES INJURY, ALSO PAIN WITH URINATION HPI 76-year-old female, with a history of hypertension, presents to the emergency department complaining of 2 days with worsening of her lower back pain associated with dysuria and urinary frequency. The back pain is bilateral, dull , 7/10, constant. No history of recent trauma. Denies numbness, tingling, incontinence. Denies fevers, chills, headache, no rashes. No treatment attempted at this time. ROS SYSTEMIC symptoms: no fever, chills, no night sweats, no weight loss EYE symptoms: No blurred vision, no eye discharge OTOLARYNGEAL symptoms: No hearing loss. No ear pain, no sore throat CARDIOVASCULAR symptoms: No chest pain or discomfort, no palpitations. PULMONARY symptoms: No dyspnea, no cough, no wheezing. GASTROINTESTINAL symptoms: No abdominal pain, no nausea, no vomiting, no diarrhea MUSCULOSKELETAL symptoms: Per HPI NEUROLOGY symptoms: No confusion, no syncope, no numbness or tingling. SKIN: No rashes Medications Home Meds Active Scripts Baclofen* (Baclofen*) 10 Mg Tablet, 10 MG PO QHS for MUSCLE SPASMS for 10 Days, #10 TAB Prov:CHRIS LANGE MD 03/03/17 Nitrofurantoin Monohyd Macrocr* (Macrobid*) 100 Mg Capsr, 100 MG PO HS for 7 Days, CAP Prov:CHRIS LANGE MD 03/03/17 Hydrochlorothiazide* (Hydrochlorothiazide*) 25 Mg Tab, 25 MG PO DAILY, #30 TAB Prov:ASHLEY NGUYEN MD 11/07/16 Aspirin* ([place] Aspirin*) 81 Mg Tab.chew, 81 MG PO DAILY, #90 TAB.CHEW Prov:AMBROCIO BREAUX MD 08/28/16 Pravastatin Sodium* (Pravastatin Sodium*) 20 Mg Tablet, 20 MG PO HS, #30 TAB Prov:AMBROCIO BREAUX MD 08/28/16 Atenolol* (Atenolol*) 25 Mg Tablet, 25 MG PO DAILY, #30 TAB Prov:AMBROCIO BREAUX MD 08/28/16 Tramadol HCl (Tramadol HCl) 50 Mg Tablet, 50 MG PO Q4 Y for PAIN, #30 TAB Prov:AMBROCIO BREAUX MD 08/28/16 Tramadol HCl (Tramadol HCl) 50 Mg Tablet, 50 MG PO Q6, #10 TAB Prov:DEYSI ZAMORA DO 07/31/16 Omeprazole* (Omeprazole*) 40 Mg Capsule.dr, 40 MG PO DAILY, #10 CAP Prov:DEYSI ZAMORA DO 07/31/16 Acetaminophen* (Tylophen*) 500 Mg Capsule, 1 CAP PO Q6H Y for PAIN AND OR ELEVATED TEMP, #20 CAP Prov:AMBROCIO BREAUX MD 07/29/16 Tramadol HCl (Tramadol HCl) 50 Mg Tablet, 50 MG PO Q4 Y for PAIN, #15 TAB Prov:AMBROCIO BREAUX MD 07/29/16 Ondansetron (Ondansetron Odt) 4 Mg Tab.rapdis, 4 MG PO Q6H Y for NAUSEA AND/OR VOMITING, #10 TAB Prov:GURWINDERNASREEN DO 06/13/16 Phenazopyridine Hcl* (Pyridium*) 100 Mg Tab, 100 MG PO TID, #6 TAB Prov:GURWINDERNASREEN DO 06/13/16 Naproxen* (Naproxen*) 500 Mg Tablet, 375 MG PO BID Y for PAIN, #20 TAB Prov:GURWINDERNASREEN DO 06/13/16 Nitrofurantoin Monohyd Macrocr* (Macrobid*) 100 Mg Capsr, 100 MG PO BID for 14 Days, CAP Prov:GURWINDERNASREEN DO 06/13/16 Ciprofloxacin Hcl* (Ciprofloxacin Hcl*) 500 Mg Tablet, 500 MG PO BID for 10 Days , TAB Prov:GURWINDERNASREEN 06/13/16 Reported Medications Atenolol* (Atenolol*) 25 Mg Tablet, 25 MG PO DAILY, #30 TAB 06/13/16 Pravastatin Sodium* (Pravastatin Sodium*) 20 Mg Tablet, 20 MG PO HS, TAB 06/13/16 Aspirin* (Aspirin* EC) 81 Mg Tablet.dr, 81 MG PO DAILY, TAB 06/13/16 Allergies Allergies: Coded Allergies: morphine (Verified Allergy, Mild, 06/13/16) PMhx/Soc History of Surgery: Yes (CHOLECYSECTOMY, RIGHT BREAST TUMOR REMOVAL, VAGINAL CYST REMOVAL) Anesthesia Reaction: No Hx Neurological Disorder: No Hx Respiratory Disorders: No Hx Cardiac Disorders: Yes (HTN, HIGH CHOLESTEROL) Hx Psychiatric Problems: No Hx Miscellaneous Medical Probl: Yes (DIABETES) Hx Alcohol Use: No Hx Substance Use: No Hx Tobacco Use: No Smoking Status: Never smoker Physical Exam Vitals Vital Signs Date Time Temp Pulse Resp B/P Pulse Ox O2 Delivery O2 Flow Rate FiO2 03/03/17 18:16 99.2 82 17 150/79 98 Physical Exam Patient is in mild acute distress due to pain, vital signs stable. Alert and fully oriented. EYES: PERRLA, EOMI, Sclera and conjunctiva appear normal. EARS: Canals clear, tympanic membranes WNL THROAT: Normal oropharynx. NECK: Supple, No lymphadenopathy. Full ROM without pain or tenderness. HEART: RRR, no rubs, murmurs, clicks or gallops. LUNGS: Clear to auscultation. ABDOMEN: Soft, non-tender without masses or hepatosplenomegaly. EXTREMITIES: No edema bilaterally. BACK: Full ROM, no deformity, normal back exam NEURO: Cranial nerves grossly intact, no motor or sensory deficit Results 24 hrs Laboratory Tests Test 03/03/17 21:21 03/03/17 21:27 Bedside Urine pH (LAB) 6.5 6.5 Bedside Urine Protein (LAB) Negative Negative Bedside Urine Glucose (UA) Negative Negative Bedside Urine Ketones (LAB) Negative Negative Bedside Urine Blood 1+ 1+ Bedside Urine Nitrite (LAB) Negative Negative Bedside Urine Leukocyte Esterase (L Negative Negative Procedures/MDM 76y/o female patient with history of hypertension presents to the emergency department complaining of 2 days of worsening of back pain associated with dysuria for 2 days. Vital signs stable, physical exam unremarkable. Differential diagnosis include but not limited to: Acute musculoskeletal injury , herniated disc, urolithiasis, UTI, arthritis, degenerative disc disease. Low suspicion for vertebral fracture, cauda equina syndrome, psoas abscess.. Pertinent Data: UA: Traces of blood Physical examination and clinical presentation consistent most likely with acute cystitis. During the ED course the patient remained stable, no new complaints. The patient received treatment with Toradol IM presenting overall improvement of the symptoms. Results and clinical impression discussed with patient who agrees with management. The patient is stable to be treated outpatient and will be discharged home with a Rx for Macrobid and baclofen, some side effects of prescribed medications (headache, rash, nausea, vomiting, diarrhea, drowsiness, habituation, bleeding, hypertension, interactions with other medications) were reviewed. The patient was instructed to follow up with the primary care provider in the next 48h. If symptoms persist, worsen or new symptoms develop, then patient should return to the ED immediately. Instructions explained and given directly by me to the patient in Japanese with acknowledgment and demonstrated understanding. Disclaimer: Inadvertent spelling and grammatical errors are likely due to EHR/ dictation software use and do not reflect on the overall quality of patient care. Also, please note that the electronic time recorded on this note does not necessarily reflect the actual time of the patient encounter. Departure Diagnosis: Primary Impression: Acute cystitis Condition: Stable Additional Instructions: Call your primary care doctor TOMORROW for an appointment during the next 1-2 days. See the doctor sooner or return here if your condition worsens before your appointment time. Thank you very much for allowing us to participate in your care. Your health and safety is our top priority at [facility]. Have prescriptions filled and follow precisely the directions on the label. Follow-up with primary care provider during the next 4 days and bring all the information and medications prescribed. If illness has not improved in 2 days, then make an appointment with primary care provider. If the provider is unavailable, return to the Emergency Department immediately. CHRIS LANGE MD Mar 03, 2017 21:40
[2017-03-03] MEDS ORDERED: NITR-58 PO (22:04)
[2017-03-03] MEDS ORDERED: BACL10TA PO (22:04)
[2017-03-03] MEDS ORDERED: KETOROLAC 15 MG INJ IM STA (22:09)
[2017-03-03 22:34] VITALS: BP_SYST 75; PULSE 74; RESP 18; TEMP 97.5
== END 2017-03-03 22:34 | disposition home or self-care (01) ==
LOC: FTE 18:12
DX: N30.00 Acute cystitis without hematuria (principal); I10 Essential (primary) hypertension; E11.9 Type 2 diabetes mellitus without complications; Z79.82 Long term (current) use of aspirin
CPT/HCPCS: 81003; 96372; J1885; Z7502

== ENCOUNTER 2017-05-05 13:20 | Emergency (ER) | END 2017-05-05 19:15 | disposition home or self-care (01) ==

== ENCOUNTER 2017-07-21 13:04 | Emergency (ER) | END 2017-07-21 18:18 | disposition home or self-care (01) ==

== ENCOUNTER 2017-09-03 20:30 | Inpatient (IN) | END 2017-09-06 14:45 | disposition home or self-care (01) | DRG 690 ==

== ENCOUNTER 2017-09-09 14:06 | Outpatient (CLI) | END 2017-09-09 16:09 | disposition home or self-care (01) ==

== ENCOUNTER 2017-09-29 14:04 | Outpatient (CLI) | END 2017-09-29 15:43 | disposition home or self-care (01) ==

== ENCOUNTER 2017-11-10 13:07 | Emergency (ER) | END 2017-11-10 14:20 | disposition home or self-care (01) ==

== ENCOUNTER 2018-05-26 12:26 | Emergency (ER) | payer OTHER ==
[~2018-05-26] VITALS: Wt 70.6 kg
[~2018-05-26 12:26] MED LIST changes: -ACET500C5 PO; -ASPI-664 PO; -ASPI-805 PO; +ASPI-817 PO; -ATEN-51 PO; -CIPR500T4 PO; +LISI-471 PO; -NAPR-688 PO; +NAPR-985 PO; -NITR-58 PO; -OMEP40CA6 PO; -ONDA4TAB14 PO; -PHEN-537 PO; -PRAV20TA63 PO
[2018-05-26] MEDS ORDERED: CEFEPIME 2GM/50 ML (PMX) 50 ML IVPB STA (15:18)
[2018-05-26] MEDS ORDERED: SODIUM CHLORIDE 0.9% 1L BAG IV* STA (15:18)
[2018-05-26] MEDS ORDERED: VANCOMYCIN 1 GM (PMX) 250 ML IVPB ONE (15:30)
[2018-05-26] MEDS ORDERED: KETOROLAC 15 MG INJ IV STA (16:10)
--- NOTE | 2018-05-26 16:33 | ERD ---
ER Documentation Chief Complaint Chief Complaint bib family, cc: cough, n/v, body aches, headache for 3 days HPI This is a 78-year-old female with a history of hypertension who presents to the emergency room for evaluation of cough, nasal congestion, body ache and a headache for the past 3 days. The patient denies any vomiting or diarrhea. She denies any chest pain or shortness of breath currently. The patient has not taken any medicines for her symptoms and came to the emergency room today for evaluation. ROS All systems reviewed and are negative except as per history of present illness. Medications Home Meds Active Scripts Naproxen* (Naprosyn*) 500 Mg Tablet, 500 MG PO BID PRN for PAIN AND/OR INFLAMMATION, #30 TAB Prov:HELEN WILSON PA-C 11/10/17 Tramadol HCl (Tramadol HCl) 50 Mg Tablet, 50 MG PO Q4 PRN for PAIN, #20 TAB Prov:HELEN WILSON PA-C 11/10/17 Reported Medications Hydrochlorothiazide* (Hydrochlorothiazide*) 25 Mg Tab, 25 MG PO DAILY, #30 TAB 09/02/17 Lisinopril* (Lisinopril*) 20 Mg Tablet, 20 MG PO DAILY, #30 TAB 09/02/17 Aspirin* (Aspirin* EC) 81 Mg Tablet.dr, 81 MG PO DAILY, TAB 09/02/17 Allergies Allergies: Coded Allergies: morphine (Verified Allergy, Mild, 09/02/17) PMhx/Soc History of Surgery: Yes (right breast mass, cholecystectomy) Anesthesia Reaction: No Hx Neurological Disorder: No Hx Respiratory Disorders: No Hx Cardiac Disorders: Yes (hypertension, HLD,) Hx Psychiatric Problems: No Hx Miscellaneous Medical Probl: Yes (pls see EMR) Hx Alcohol Use: No Hx Substance Use: No Hx Tobacco Use: No Smoking Status: Never smoker Physical Exam Vitals Vital Signs Date Temp Pulse Resp B/P (MAP) Pulse Ox O2 O2 Flow FiO2 Time Delivery Rate 05/26/18 Nasal 15:24 Cannula 05/26/18 98.5 85 19 159/69 98 Room Air 15:22 (99) 05/26/18 99.8 106 19 179/76 96 12:28 (110) Physical Exam INITIAL VITAL SIGNS: Reviewed by me GENERAL: The patient is frail appearing elderly female in no acute distress HEENT: Dry mucous membranes, pupils equal, round, and reactive to light. EOMI. There is no scleral icterus. NECK: C-spine is soft and supple, there is no meningismus. There is no c ervical lymphadenopathy. LUNGS: Clear to auscultation bilaterally. There are no rales, wheezes or r honchi. HEART: Regular rate and rhythm, no murmurs, clicks, rubs or gallops. ABDOMEN: Soft, non-tender, non-distended. There are bowel sounds in all four quadrants. No rebound or guarding. EXTREMITIES: There is no peripheral cyanosis or edema. No focal swelling or erythema. NEUROLOGICAL: The patient moves all four extremities with 5/5 strength. Cranial nerves II - XII are intact. Normal gait. Alert and oriented SKIN: There is no apparent rash or petechiae. HEME/LYMPHATIC: There is no evidence of excessive bruising or lymphedema. PSYCHIATRIC: The patient does not appear anxious or depressed. Result Diagram: 05/26/18 1527 05/26/18 1527 Results 24 hrs Laboratory Tests Test 05/26/18 15:27 White Blood Count 10.9 10^3/ul Red Blood Count 4.11 10^6/ul Hemoglobin 12.8 g/dl Hematocrit 37.6 % Mean Corpuscular Volume 91.5 fl Mean Corpuscular Hemoglobin 31.1 pg Mean Corpuscular Hemoglobin Concent 34.0 g/dl Red Cell Distribution Width 12.6 % Platelet Count 267 10^3/UL Mean Platelet Volume 8.5 fl Immature Granulocytes % 0.500 % Neutrophils % 77.3 % Lymphocytes % 14.9 % Monocytes % 6.0 % Eosinophils % 0.8 % Basophils % 0.5 % Nucleated Red Blood Cells % 0.0 /100WBC Immature Granulocytes # 0.060 10^3/ul Neutrophils # 8.4 10^3/ul Lymphocytes # 1.6 10^3/ul Monocytes # 0.7 10^3/ul Eosinophils # 0.1 10^3/ul Basophils # 0.1 10^3/ul Nucleated Red Blood Cells # 0.0 10^3/ul Prothrombin Time 12.7 Sec Prothrombin Time Ratio 1.0 INR International Normalized Ratio 0.94 Activated Partial Thromboplast Time 29.7 Sec Urine Color YELLOW Urine Clarity CLEAR Urine pH 7.0 Urine Specific [place] 1.013 Urine Ketones NEGATIVE mg/dL Urine Nitrite NEGATIVE mg/dL Urine Bilirubin NEGATIVE mg/dL Urine Urobilinogen NEGATIVE mg/dL Urine Leukocyte Esterase NEGATIVE Christopher/ul Urine Microscopic RBC 11 /HPF Urine Microscopic WBC 2 /HPF Urine Hemoglobin 1+ mg/dL Urine Glucose NEGATIVE mg/dL Urine Total Protein NEGATIVE mg/dl Sodium Level 141 mmol/L Potassium Level 3.6 mmol/L Chloride Level 103 mmol/L Carbon Dioxide Level 27 mmol/L Anion Gap 11 Blood Urea Nitrogen 16 mg/dl Creatinine 0.75 mg/dl Est Glomerular Filtrat Rate mL/min mL/min Glucose Level 118 mg/dl POC Venous Lactate 1.0 mmol/L Calcium Level 9.8 mg/dl Total Bilirubin 0.8 mg/dl Direct Bilirubin 0.00 mg/dl Indirect Bilirubin 0.8 mg/dl Aspartate Amino Transf (AST/SGOT) 20 IU/L Alanine Aminotransferase (ALT/SGPT) 20 IU/L Alkaline Phosphatase 120 IU/L Troponin I < 0.012 ng/ml Total Protein 8.1 g/dl Albumin 4.4 g/dl Globulin 3.70 g/dl Albumin/Globulin Ratio 1.18 Current Medications Medications Dose Sig/Cyrus Start Time Status Last (Trade) Ordered Route PRN Stop Time Admin Dose Reason Admin Sodium 2,120 ml BOLUS OVER 2 05/26/18 DC 05/26/18 Chloride HOURS STAT 15:18 15:40 (NS) IV* 05/26/18 15:20 Cefepime HCl 50 ml @ ONCE STAT 05/26/18 DC 05/26/18 100 mls/hr IVPB 15:18 15:39 05/26/18 15:47 Vancomycin 250 ml @ ONCE ONCE 05/26/18 HCl 125 mls/hr IVPB 15:30 05/26/18 17:29 Ketorolac 15 mg ONCE STAT 05/26/18 DC 05/26/18 Tromethamine IV 16:10 16:19 (Toradol) 05/26/18 16:14 Procedures/MDM EKG: Rate/Rhythm: [Normal Sinus Rhythm] QRS, ST, T-waves: [No changes consistent w/ acute ischemia] Impression: [No evidence of ischemia or arrhythmia] Chest X-ray 1V Interpreted by me: Soft Tissue: No acute abnormalities Bones: No acute abnormalities Mediastinum/Cardiac Silhouette/Lungs: [No acute abnormalities] This 78-year-old female presents to the emergency room for evaluation of congestion, headache, body aches. The patient was febrile and tachycardic when she arrived. A code sepsis was called. Patient was given IV fluids and was started on broad-spectrum antibiotics. The patient's lab work is within normal limits at this time, her chest x-ray is clear, and influenza is negative. Patient was given antipyretic medication and on reevaluation she is no longer tachycardic, she states she is feeling much better. She was given 15 mg of Toradol IV for body aches and the patient is not ambulating in the ER without difficulty. She has no bacterial source of infection is likely suffering from a viral upper respiratory infection. The patient is hemodynamically stable at this time and does feel better and will be discharged with a prescription of Robitussin, and Motrin to take for fever. The patient was given strict return precautions and does feel comfortable with her plan of care. Departure Diagnosis: Primary Impression: Influenza-like symptoms Additional Impressions: Myalgia Cough Condition: TOSHIA Pozo DO May 26, 2018 16:33
[2018-05-26] MEDS ORDERED: IBUP800T48 PO (16:35)
[2018-05-26] MEDS ORDERED: GUAI5SYR2 PO (16:35)
[2018-05-26 17:00] VITALS: BP 158/77; PULSE 88; RESP 18
== END 2018-05-26 17:00 | disposition home or self-care (01) ==
LOC: E/R 12:26
DX: M79.10 Myalgia, unspecified site (principal); R51 Headache; R09.81 Nasal congestion; I10 Essential (primary) hypertension; R07.9 Chest pain, unspecified; Z79.82 Long term (current) use of aspirin
CPT/HCPCS: 36415; 71045; 80053; 81001; 83605; 84484; 85025; 85610; 85730; 87040; 87086; 87400; 93005; 96374; 96375; J0692; J1885; J3370; J7030; Z7502

== ENCOUNTER 2018-06-09 07:14 | Emergency (ER) | payer OTHER ==
[~2018-06-09] VITALS: Ht 162.6 cm; Wt 70.6 kg
[~2018-06-09 07:14] MED LIST changes: +GUAI5SYR2 PO; +IBUP800T48 PO
[2018-06-09 07:21] VITALS: Ht 162.6 cm; Wt 70.6 kg
[2018-06-09] MEDS ORDERED: TRAM50TA2 PO (09:04)
[2018-06-09] MEDS ORDERED: CEPH-443 PO (09:04)
--- NOTE | 2018-06-09 09:14 | ERD ---
ER Documentation Chief Complaint Chief Complaint left hip pain x 2 days UKN cause HPI 78-year-old female presenting with left hip pain times 2 days. She states her pain is worse with ambulation. She denies any dysuria or back pain. Denies any abdominal or flank pain. Has not had any recent falls or injuries. She states her pain is radiating from her lower back down her buttocks into her legs. Denies any use of medications. Denies other medical problems. NKDA. Surgical history denies. Social history denies ROS All systems reviewed and are negative except as per history of present illness. Medications Home Meds Active Scripts Cephalexin* (Keflex*) 500 Mg Capsule, 500 MG PO QID for 7 Days, CAP Prov:HELEN WILSON PA-C 06/09/18 Tramadol HCl (Tramadol HCl) 50 Mg Tablet, 50 MG PO Q4 PRN for PAIN, #20 TAB Prov:HELEN WILSON PA-C 06/09/18 Ibuprofen* (Motrin*) 800 Mg Tab, 800 MG PO Q6H PRN for PAIN AND OR ELEVATED TEMP, #30 TAB Prov:TOSHIA MONTOYA DO 05/26/18 Guaifenesin-Dextromethorphan* (Robitussin* DM) 100MG/10MG/5ML Syrup, 10 ML PO Q6 PRN for COUGH, #120 ML Prov:TOSHIA MONTOYA DO 05/26/18 Naproxen* (Naprosyn*) 500 Mg Tablet, 500 MG PO BID PRN for PAIN AND/OR INFLAMMATION, #30 TAB Prov:HELEN WILSON PA-C 11/10/17 Tramadol HCl (Tramadol HCl) 50 Mg Tablet, 50 MG PO Q4 PRN for PAIN, #20 TAB Prov:HELEN WILSON PA-C 11/10/17 Reported Medications Hydrochlorothiazide* (Hydrochlorothiazide*) 25 Mg Tab, 25 MG PO DAILY, #30 TAB 09/02/17 Lisinopril* (Lisinopril*) 20 Mg Tablet, 20 MG PO DAILY, #30 TAB 09/02/17 Aspirin* (Aspirin* EC) 81 Mg Tablet.dr, 81 MG PO DAILY, TAB 09/02/17 Allergies Allergies: Coded Allergies: morphine (Verified Allergy, Mild, 09/02/17) PMhx/Soc History of Surgery: Yes (right breast mass, cholecystectomy) Anesthesia Reaction: No Hx Neurological Disorder: No Hx Respiratory Disorders: No Hx Cardiac Disorders: Yes (hypertension, HLD,) Hx Psychiatric Problems: No Hx Miscellaneous Medical Probl: Yes (pls see EMR) Hx Alcohol Use: No Hx Substance Use: No Hx Tobacco Use: No FmHx Family History: No diabetes, No coronary disease, No other Physical Exam Vitals Vital Signs Date Temp Pulse Resp B/P (MAP) Pulse Ox O2 O2 Flow FiO2 Time Delivery Rate 06/09/18 97.5 93 19 198/83 98 07:21 (121) Physical Exam GENERAL: The patient is well-appearing, well-nourished, in no acute distress CHEST: Clear to auscultation bilaterally. There are no rales, wheezes or rhonchi. HEART: Regular rate and rhythm. No murmurs, clicks, rubs or gallops. . ABDOMEN:Soft, nontender and nondistended. Good bowel sounds. No rebound or guarding. No gross peritonitis. No gross organomegaly or masses. BACK: No midline or flank tenderness. No CVA tenderness EXTREMITIES: Equal pulses bilaterally. There is no peripheral clubbing, cyanosis or edema. No focal swelling or erythema. Full range of motion. Grossly neurovascularly intact. Tender to palpation with internal and external rotation of the hip. NEUROLOGIC: Alert and oriented. Motor strength in all 4 extremities with 5 out of 5 strength. Sensation grossly intact. Normal speech and gait. SKIN: There is no apparent rash or petechiae. The skin is warm and dry. Results 24 hrs Laboratory Tests Test 06/09/18 09:00 Bedside Urine pH (LAB) 7.0 Bedside Urine Protein (LAB) Negative Bedside Urine Glucose (UA) Negative Bedside Urine Ketones (LAB) Negative Bedside Urine Blood 3+ Bedside Urine Nitrite (LAB) Negative Bedside Urine Leukocyte Esterase (L 1+ Procedures/MDM DIAGNOSTIC IMAGING REPORT Patient: LISA PHAN : 1940 Age: 78 Sex: F MR #: [id number] DOS: 06/09/18 0758 Ordering MD: VALERIA WILSON PA-C Location: [facility] Room/Bed: PROCEDURE: XR Hip Left 2 View (Routine) CLINICAL INDICATION: Left hip pain. TECHNIQUE: VIEWS: 2 IMAGES: 2 COMPARISON: CT abdomen and pelvis dated September 02, 2017. FINDINGS: OSSEOUS STRUCTURES Fractures: None. JOINTS: Spaces: Preserved although tiny osteophytes are noted. IMPRESSION: 1. No acute osseous abnormalities. MDM: 78-year-old female presenting with hip pain. Patient's pain is worse with walking and internal/external rotation. I have considered possible urinary tract infection or pyelonephritis. Patient's urine is questionable for infection I will treat with antibiotics. I have low suspicion for nephrolithiasis or acute abdominal emergency. Abdominal exam is non-concerning. I do not feel there is indication for further evaluation. I have low suspicion for DVT or vascular insufficiency. Exam is non-concerning and there is no swelling noted to the lower extremity. I have low suspicion for infectious etiology. I have low suspicion for neuro deficit. Patient is discharged stricter precautions and told to follow-up with primary care within 1-2 days for close evaluation. Patient is told symptoms change or worsen to return immediately to the ER. All questions answered at Departure Diagnosis: Primary Impression: Hip pain Additional Impression: UTI (urinary tract infection) Condition: Stable Patient Instructions: Hip Precautions, Understanding Urinary Tract Infections (UTIs) Referrals: COMM[facility]ITY [facility] YOU HAVE RECEIVED A MEDICAL SCREENING EXAM AND THE RESULTS INDICATE THAT YOU DO NOT HAVE A CONDITION THAT REQUIRES URGENT TREATMENT IN THE EMERGENCY DEPARTMENT. FURTHER EVALUATION AND TREATMENT OF YOUR CONDITION CAN WAIT UNTIL YOU ARE SEEN IN YOUR DOCTORS OFFICE WITHIN THE NEXT 1-2 DAYS. IT IS YOUR RESPONSIBILITY TO MAKE AN APPOINTMENT FOR FOLOW-UP CARE. IF YOU HAVE A PRIMARY DOCTOR --you should call your primary doctor and schedule an appointment IF YOU DO NOT HAVE A PRIMARY DOCTOR YOU CAN CALL OUR PHYSICIAN REFERRAL HOTLINE AT IF YOU CAN NOT AFFORD TO SEE A PHYSICIAN YOU CAN CHOSE FROM THE FOLLOWING CO [facility] [address] [facility] [address] [facility] [facility] [address] [facility] [address] [facility] [address] [facility] [facility] [address] Additional Instructions: FOLLOW UP WITH YOUR PRIMARY CARE PHYSICIAN TOMORROW.Return to this facility if you are not improving as expected. HELEN WILSON PA-C Jun 09, 2018 09:14
[2018-06-09 09:36] VITALS: BP 155/89; PULSE 76; RESP 19
== END 2018-06-09 09:37 | disposition home or self-care (01) ==
LOC: FTE 07:14
DX: M25.552 Pain in left hip (principal); I10 Essential (primary) hypertension; N39.0 Urinary tract infection, site not specified; Z79.82 Long term (current) use of aspirin
CPT/HCPCS: 73510; 81003; Z7502

== ENCOUNTER 2018-06-15 21:33 | Emergency (ER) | payer OTHER ==
[~2018-06-15] VITALS: Ht 152.4 cm; Wt 70.2 kg
[~2018-06-15 21:33] MED LIST changes: +CEPH-443 PO
[2018-06-15 22:07] VITALS: Ht 152.4 cm; Wt 70.2 kg
[2018-06-16] MEDS ORDERED: ONDANSETRON 4 MG INJ IV STA (00:47)
[2018-06-16] MEDS ORDERED: SOD CHLORIDE 0.9% 500 ML IV STA (00:47)
[2018-06-16] MEDS ORDERED: HYDROmorphONE 0.5 MG/0.5 ML SYG IV STA (01:49)
--- NOTE | 2018-06-16 02:19 | ERD ---
ER Documentation Chief Complaint Chief Complaint LLQ pain x 1 week HPI Is a very pleasant 78-year-old female who underwent a left lower quadrant pain for the past week. Pain is mild to moderate intensity with no exacerbating alleviating factors. Patient denies trauma. Bowel movements have been less frequent per family at the bedside. No nausea no vomiting. No fevers or chills. ROS All systems reviewed and are negative except as per history of present illness. Medications Home Meds Active Scripts Cephalexin* (Keflex*) 500 Mg Capsule, 500 MG PO QID for 7 Days, CAP Prov:HELEN WILSON PA-C 06/09/18 Tramadol HCl (Tramadol HCl) 50 Mg Tablet, 50 MG PO Q4 PRN for PAIN, #20 TAB Prov:HELEN WILSON PA-C 06/09/18 Ibuprofen* (Motrin*) 800 Mg Tab, 800 MG PO Q6H PRN for PAIN AND OR ELEVATED TEMP, #30 TAB Prov:TOSHIA MONTOYA DO 05/26/18 Guaifenesin-Dextromethorphan* (Robitussin* DM) 100MG/10MG/5ML Syrup, 10 ML PO Q6 PRN for COUGH, #120 ML Prov:TOSHIA MONTOYA DO 05/26/18 Naproxen* (Naprosyn*) 500 Mg Tablet, 500 MG PO BID PRN for PAIN AND/OR INFLAMMATION, #30 TAB Prov:HELEN WILSON PA-C 11/10/17 Tramadol HCl (Tramadol HCl) 50 Mg Tablet, 50 MG PO Q4 PRN for PAIN, #20 TAB Prov:HELEN WILSON PA-C 11/10/17 Reported Medications Hydrochlorothiazide* (Hydrochlorothiazide*) 25 Mg Tab, 25 MG PO DAILY, #30 TAB 09/02/17 Lisinopril* (Lisinopril*) 20 Mg Tablet, 20 MG PO DAILY, #30 TAB 09/02/17 Aspirin* (Aspirin* EC) 81 Mg Tablet.dr, 81 MG PO DAILY, TAB 09/02/17 Allergies Allergies: Coded Allergies: morphine (Verified Allergy, Mild, 09/02/17) PMhx/Soc History of Surgery: Yes (right breast mass, cholecystectomy) Anesthesia Reaction: No Hx Neurological Disorder: No Hx Respiratory Disorders: No Hx Cardiac Disorders: Yes (hypertension, HLD,) Hx Psychiatric Problems: No Hx Miscellaneous Medical Probl: No Hx Alcohol Use: No Hx Substance Use: No Hx Tobacco Use: No Smoking Status: Never smoker Physical Exam Vitals Vital Signs Date Temp Pulse Resp B/P (MAP) Pulse Ox O2 O2 Flow FiO2 Time Delivery Rate 06/15/18 99.1 82 18 131/68 97 22:07 (89) Physical Exam Const: No acute distress Head: Atraumatic Eyes: Normal Conjunctiva ENT: Normal External Ears, Nose and Mouth. Neck: Full range of motion. No meningismus. Resp: Clear to auscultation bilaterally Cardio: Regular rate and rhythm, no murmurs Abd: Soft, non tender, non distended. Normal bowel sounds Skin: No petechiae or rashes Back: No midline or flank tenderness Ext: No cyanosis, or edema Neur: Awake and alert Psych: Normal Mood and Affect Result Diagram: 06/16/18 0118 06/16/18 0118 Results 24 hrs Laboratory Tests Test 06/16/18 01:18 White Blood Count 7.6 10^3/ul Red Blood Count 3.69 10^6/ul Hemoglobin 11.7 g/dl Hematocrit 34.7 % Mean Corpuscular Volume 94.0 fl Mean Corpuscular Hemoglobin 31.7 pg Mean Corpuscular Hemoglobin Concent 33.7 g/dl Red Cell Distribution Width 12.4 % Platelet Count 281 10^3/UL Mean Platelet Volume 8.9 fl Immature Granulocytes % 0.500 % Neutrophils % 68.5 % Lymphocytes % 20.5 % Monocytes % 5.9 % Eosinophils % 3.8 % Basophils % 0.8 % Nucleated Red Blood Cells % 0.0 /100WBC Immature Granulocytes # 0.040 10^3/ul Neutrophils # 5.2 10^3/ul Lymphocytes # 1.6 10^3/ul Monocytes # 0.5 10^3/ul Eosinophils # 0.3 10^3/ul Basophils # 0.1 10^3/ul Nucleated Red Blood Cells # 0.0 10^3/ul Urine Color YELLOW Urine Clarity CLEAR Urine pH 5.0 Urine Specific [place] 1.017 Urine Ketones NEGATIVE mg/dL Urine Nitrite NEGATIVE mg/dL Urine Bilirubin NEGATIVE mg/dL Urine Urobilinogen NEGATIVE mg/dL Urine Leukocyte Esterase TRACE Christopher/ul Urine Microscopic RBC 12 /HPF Urine Microscopic WBC 11 /HPF Urine Squamous Epithelial Cells FEW /HPF Urine Hemoglobin NEGATIVE mg/dL Urine Glucose NEGATIVE mg/dL Urine Total Protein NEGATIVE mg/dl Sodium Level 140 mmol/L Potassium Level 4.3 mmol/L Chloride Level 103 mmol/L Carbon Dioxide Level 27 mmol/L Anion Gap 10 Blood Urea Nitrogen 24 mg/dl Creatinine 0.83 mg/dl Est Glomerular Filtrat Rate mL/min mL/min Glucose Level 133 mg/dl Calcium Level 9.4 mg/dl Total Bilirubin 0.4 mg/dl Direct Bilirubin 0.00 mg/dl Indirect Bilirubin 0.4 mg/dl Aspartate Amino Transf (AST/SGOT) 18 IU/L Alanine Aminotransferase (ALT/SGPT) 15 IU/L Alkaline Phosphatase Pending Troponin I < 0.012 ng/ml Total Protein 7.3 g/dl Albumin 4.1 g/dl Globulin 3.20 g/dl Albumin/Globulin Ratio 1.28 Lipase 22 U/L Current Medications Medications Dose Sig/Cyrus Start Time Status Last (Trade) Ordered Route PRN Stop Time Admin Dose Reason Admin Sodium 500 ml @ Q1H STAT 06/16/18 DC 06/16/18 Chloride 500 mls/hr IV 00:47 01:40 06/16/18 01:46 Ondansetron 4 mg ONCE STAT 06/16/18 DC 06/16/18 HCl (Zofran IV 00:47 01:40 Inj) 06/16/18 00:48 0.5 mg ONCE STAT 06/16/18 DC 06/16/18 Hydromorphone IV 01:49 02:00 HCl 06/16/18 01:50 (Dilaudid) Procedures/MDM Emergency department course: Patient seen and evaluated triage nurse. Placed medication. Had an EKG and a chest x-ray along with a CT scan of the abdomen and pelvis Diagnostic data: Chest X-ray 1V Interpreted by me: Soft Tissue: No acute abnormalities Bones: No acute abnormalities Mediastinum/Cardiac Silhouette/Lungs: [No acute abnormalities] EKG: Rate/Rhythm: [Normal Sinus Rhythm] QRS, ST, T-waves: [No changes consistent w/ acute ischemia] Impression: [No evidence of ischemia or arrhythmia] Medical decision making: Patient's gastrointestinal symptoms have stabilized while in the department. Patient did not have evidence of constipation on CT scan of abdomen pelvis No evidence of severe dehydration, sepsis, or surgical abdomen. Extensive discussion with family and patient that occult disease cannot be ruled out. 8 hour recheck for repeat abdominal exam is planned. Departure Diagnosis: Primary Impression: Abdominal pain Abdominal location: unspecified location Qualified Codes: R10.9 - Unspecified abdominal pain Condition: Stable ADAM BELLAMY Jun 16, 2018 02:19
[2018-06-16] MEDS ORDERED: DOCU-144 PO (02:35)
[2018-06-16] MEDS ORDERED: DICY10CA40 PO (02:38)
[2018-06-16 03:25] VITALS: BP 151/64; PULSE 78; RESP 18
[2018-06-16] MEDS ORDERED: PRAV20TA63 PO (03:29)
== END 2018-06-16 03:28 | disposition home or self-care (01) ==
LOC: E/R 21:33
DX: R10.32 Left lower quadrant pain (principal); I10 Essential (primary) hypertension; Z79.82 Long term (current) use of aspirin
CPT/HCPCS: 36415; 71045; 74176; 80053; 81001; 83690; 84484; 85025; 93005; 96374; 96375; J1170; J2405; J7040; Z7502

== ENCOUNTER 2018-07-07 23:42 | Emergency (ER) | payer SELFPAY ==
[~2018-07-07] VITALS: Ht 157.5 cm; Wt 70.0 kg
[~2018-07-07 23:42] MED LIST changes: -ASPI-817 PO; +DICY10CA40 PO; +DOCU-144 PO; -GUAI5SYR2 PO; -IBUP800T48 PO; -NAPR-985 PO; +PRAV20TA63 PO
[2018-07-07 23:53] VITALS: BP 179/73; PULSE 103; RESP 18; Ht 157.5 cm; Wt 70.0 kg
== END 2018-07-08 02:56 | disposition left against medical advice (07) ==
LOC: E/R 23:42
DX: Z53.21 Procedure and treatment not carried out due to patient leaving prior to being seen by health care provider (principal)